=== PATIENT | female | born 1985 | race Caucasian/White ===

== ENCOUNTER 2016-12-19 16:09 | Emergency (ER) | payer OTHER ==
[~2016-12-19] VITALS: Ht 167.6 cm; Wt 93.6 kg
[~2016-12-19 16:09] MED LIST: ASCO500T8 PO; Acetaminophen/Codeine PO; DOCU-41 PO; Docusate Sodium PO; FERR-74 PO; IBUP800T28 PO; Ibuprofen PO; OXYC1TAB24 PO; [UNRECOGNIZED DRUG - OTHER]
[2016-12-19 16:20] VITALS: BP 123/89; PULSE 94; RESP 15; O2SAT 100
--- NOTE | 2016-12-19 16:37 | ED.REPORT ---
HPI-Chest Pain Under 40 Date of Service December 19, 2016 ED Provider: Elio Hamlin MD Pt is a healthy 7 wk by LMP 31 y/o female presenting to the ED c/o intermittent substernal chest pressure onset 4 days ago. Her pain is exacerbated by exertion, movement, bending, or twisting. She c/o associated pelvic cramping, sudden onset mild/intermittent SOB for 4 days. She had a positive test on Wednesday and her last menstrual period was October 28. [facility] for further evaluation prior to obtaining an ultrasound. She denies vaginal bleeding. She reports when the nurse took her BP on her right arm in triage it caused her severe chest pain. Pt denies any extremity swelling or tenderness, history of PE or DVT, long periods of immobilization, recent surgeries. This may or may not be a desired because she just filed for divorce from her the same day she found out she was . He reports a very high level of stress and anxiety related to discovering her at the same time she is getting . This is her 3rd and she has no history of ectopic or STIs. Nursing Notes Stated Complaint: CHEST PAIN, CRAMPING, Chief Complaint: Chest Pain Nursing Notes Reviewed: Yes Allergies: Coded Allergies: moxifloxacin (Verified Allergy, Unknown, 01/31/14) sulfamethoxazole (Verified Allergy, Unknown, RASH, 12/15/13) trimethoprim (Verified Allergy, Unknown, RASH, 12/15/13) Scheduled Ascorbic Acid (Vitamin C) 500 Mg Tablet 500 MG PO BID Ferrous Sulfate (Feosol) 325 Mg Tablet 325 MG PO TID Scheduled PRN ([Docusate Sodium]) 100 MG CAPSULE 100 MG PO BID PRN PRN For Constipation ([Ibuprofen]) 800 MG TABLET 800 MG PO Q6 PRN PRN For Pain ([Acetaminophen/Codeine]) 1 TAB TABLET 1-2 TAB PO Q3 PRN PRN For Pain Docusate Sodium (Colace) 100 Mg Capsule 100 MG PO BID PRN PRN For Constipation Ibuprofen (Ibuprofen) 800 Mg Tablet 800 MG PO TID PRN PRN For Pain oxyCODONE-Acetaminophen 5-325 mg (oxyCODONE-Acetaminophen 5-325 mg) 1 Each Tablet 1 TAB PO Q6H PRN PRN For Pain Miscellaneous Medications ([Clomide]) General Time Seen by MD: 16:33 Chief Complaint Chest pain Hx Obtained From: Patient Arrived By: Walk-in Sudden in Onset?: Yes Onset Occurred: 4 days ago Symptom Duration: Intermittent Location: : Substernal Quality: Painful, Pressure Severity: Current: No pain currently Severity: Maximum: Moderate Past Medical History Past Medical History Migraines GERD Past Surgical History Yes, unspecified Smoking History Never Smoker Ambulatory Status Independent Review of Systems Constitutional: Denies: Chills, Fever Respiratory: Reports: Shortness of breath, Denies: Non-productive cough Cardiovascular: Reports: Chest pain Musculoskeletal: Denies: Extremity pain, Extremity swelling Complete sys rev & neg: except as marked. Physical Exam Initial Vital Signs Vital Signs (First) Date Time Temp Pulse Resp B/P Pulse Ox O2 Delivery O2 Flow Rate FiO2 12/19/16 16:20 37.4 94 15 123/89 100 12/19/16 17:38 Room Air Initial VS: Reviewed, Vital signs normal Head / Eyes: Atraumatic, Normocephalic, PERRL ENT: Mucous membranes moist, Conjunctiva normal, No scleral icterus Neck: Supple, Full range of motion Abdomen / GI: Soft, Non-tender, No guarding, No rebound, No distention Extremities: Vascular intact, Neuro intact, No swelling, No tenderness Skin: Warm, Dry, No cyanosis Neurologic: Alert, Oriented, Nonfocal Psychiatric: Mood/affect normal, Behavior normal, Normal thought content General/Constitutional: Awake, Alert, No acute distress, Cooperative, Not toxic appearing Respiratory / Chest: Atraumatic, Breath sounds NL, Breath sounds = bilat, No respiratory distress, No rales, No rhonchi, No wheezing, No retractions, No stridor Cardiovascular: Heart rate NL, Regular rhythm, Heart sounds NL, No gallop, No murmurs, No rubs, Cap refill not delayed, Peripheral circulation NL Female Genitourinary: [employer] It present (Shonda [facility]), Atraumatic, External genitalia NL, No bleeding, No discharge, No cervical motion tend, Os closed, No foreign body, No adnexal mass, No adnexal tenderness, No uterine enlargement, No uterine mass, No lesions or rash Interpretation & Diagnostics Lab Results Interpretation Result Diagram: 12/19/16 1645 12/19/16 1645 Test 12/19/16 16:45 12/19/16 16:55 White Blood Count 10.7th/mm3 (3.8-10.1) Red Blood Count 4.31mil/mm3 (3.90-5.20) Hemoglobin 9.8g/dL (12.0-15.6) Hematocrit 32.2% (35.0-46.0) Mean Corpuscular Volume 74.7fL (81-100) Mean Corpuscular Hemoglobin 22.7pg (27.0-35.0) Mean Corpuscular Hemoglobin Concent 30.4% (32.0-37.0) Red Cell Distribution Width 17.9% (12.3-15.4) Platelet Count 288bil/L (150-400) Neutrophils (%) (Auto) 74.3% (40-74) Lymphocytes (%) (Auto) 19.0% (14-46) Monocytes (%) (Auto) 4.9% (4-12) Eosinophils (%) (Auto) 1.2% (0-5) Basophils (%) (Auto) 0.3% (0-3) Hold Purple Top Tube Received (Received) D-Dimer 1.68mg/L FEU (<0.50) Hold Blue Top Tube Received (Received) Sodium Level 136mEq/L (134-144) Potassium Level 3.8mEq/L (3.5-5.2) Chloride Level 99mEq/L (97-108) Carbon Dioxide Level 23mmol/L (18-29) Blood Urea Nitrogen 16mg/dL (6-20) Creatinine 0.80mg/dL (0.57-1.00) Estimat Glomerular Filtration Rate 120mL/min (>59) Glucose Level 110mg/dL (60-99) Calcium Level 9.5mg/dL (8.5-10.1) Magnesium Level 1.8mg/dL (1.6-2.6) Total Bilirubin 0.2mg/dL (0.0-1.2) Aspartate Amino Transf (AST/SGOT) 14U/L (0-50) Alanine Aminotransferase (ALT/SGPT) 14U/L (0-32) Alkaline Phosphatase 54U/L (25-150) Troponin T < 0.010ug/L (0.0-0.011) Total Protein 7.2g/dL (6.4-8.4) Albumin 4.1g/dL (3.4-5.0) HCG Beta Subunit 2765mIU/mL Hold Red Top Tube Received (Received) Hold Misenheimer Top Tube Received (Received) Hold Jonas Top Tube Received (Received) Urine Color Yellow (YELLOW) Urine Appearance Turbid (CLEAR,HAZY) Urine pH 5.5 (5.0-8.0) Urine Specific [place] 1.025 (1.003-1.035) Urine Protein Negativemg/dL (NEG,TRACE) Urine Glucose (UA) Negativemg/dL (NEGATIVE) Urine Ketones Tracemg/dL (NEGATIVE) Urine Occult Blood Negative (NEGATIVE) Urine Nitrite Negative (NEGATIVE) Urine Bilirubin Negative (NEGATIVE) Urine Urobilinogen Normalmg/dL (NORMAL) Urine Leukocyte Esterase Negative (NEGATIVE) Urine RBC 0-2/hpf (0-2) Urine WBC 0-5/hpf (0-5) Urine Epithelial Cells Occasional/hpf (NONE-MOD) Urine Crystals Amorphous urates (NONE Urine Bacteria None/hpf (NONE-FEW) Urine Hyaline Casts None/lpf (NONE) Urine Granular Casts None seen (NONE SEEN) Urine Waxy Casts None seen (NONE SEEN) Urine Red Blood Cell Casts None seen (NONE SEEN) Urine White Blood Cell Casts None seen (NONE SEEN) Urine Mucus None seen (None Seen) Urine Trichomonas None seen (NONE SEEN) Urine Yeast None (NONE SEEN) Urinalysis Comment None Urine Culture Reflexed Not indicated Hold Urine Received (Received) ECG Interpretation Time: 17:09 Interpreted by: ED physician Normal ECG Interpretation: Normal ECG w/ rate of... (80), Normal rate, Normal sinus rhythm, No acute ischemic changes, Normal QRS, Normal axis, Normal intervals, Adequate tracing US Focused Lower Ext Venous Negative for DVT in the left and right leg Exam Performed by: Allied health pract Exam Interpreted by: Allied health pract Indication: Dyspnea US Focused OB IMPRESSION: 1. Single intrauterine gestational sac without pole as above. Recommend correlation with beta-hCG levels and continued interval ultrasound followup for further evaluation. Dictated by: Neeru Mccray M.D. on 12/19/2016 at 20:22 Approved by: Neeru Mccray M.D. on 12/19/2016 at 20:24 Exam Performed by: Allied health pract Exam Interpreted by: Radiologist Re-Eval/Medical Decision Med Decision/Clinical Course Pt is a healthy 7 wk by LMP 31 y/o female presenting to the ED c/o intermittent substernal chest pressure onset 4 days ago. Her pain is exacerbated by exertion, movement, bending, or twisting. She c/o associated pelvic cramping, sudden onset mild/intermittent SOB for 4 days. She had a positive test on Wednesday and her last menstrual period was October 28. [facility] for further evaluation prior to obtaining an ultrasound. She denies vaginal bleeding. She reports when the nurse took her BP on her right arm in triage it caused her severe chest pain. Pt denies any extremity swelling or tenderness, history of PE or DVT, long periods of immobilization, recent surgeries. This may or may not be a desired because she just filed for divorce from her the same day she found out she was . He reports a very high level of stress and anxiety related to discovering her at the same time she is getting . This is her 3rd and she has no history of ectopic or STIs. Here in the emergency department the patient is afebrile, hemodynamically stable and in no apparent distress. She is very mildly tachycardic though with good oxygen saturation on room air and without tachypnea. Termination reveals no findings suggestive of DVT. Labs notable as below: CBC: HCT of 32.2, borderline leukocytosis of 10.7 CMP: Unremarkable Troponin: negative D-dimer: 1.68 Bilateral lower extremity ultrasound: No evidence of deep venous thrombosis. Pelvic ultrasound: Single intrauterine gestational sac without pole as above. Recommend correlation with beta-hCG levels and continued interval ultrasound followup for further evaluation. Pelvic examination reveals a cervix with no blood, no abnormal discharge and no tenderness. Too early at this time to rule in intrauterine though overall presentation is not particularly convincing for ectopic. Recommend [facility] with [facility] and repeat hCG level. Return immediately for any recurrent abdominal cramping or bleeding. Unfortunately, d-dimer level was obtained by triage nurse. This is extremely difficult to interpret in the setting of the patient's . Clinical suspicion for pulmonary embolism is very low. She is without ongoing tachycardia and has not been tachypneic or hypoxic on room air. Bilateral lower extremity duplex reveals no DVT. Discussed with [facility] and given overall risk factors, low clinical suspicion we both feel that CT angiography or admission for VQ study is not indicated. We feel that the risks of radiation outweigh any benefits. Patient in agreement with this plan. She will follow up closely with [facility]. Prior to discharge follow-up and return precautions were reviewed in detail with the patient who verbalized understanding and agreement with the plan. The patient was discharged in stable condition. Re-Evaluation/Progress : Time of Eval: 20:28 Re-Evaluation/Progress Note: Pt rechecked. Discussed imaging and lab results. Informed pt of plan for treatment. Pt understands and agrees with plan for treatment. F/U instructions and RTER warnings given. All questions addressed. Consultation : Referral / Consult Name: Ashlee Santacruz MD Call Returned at: 19:57 Spine Supervisor: Agrees with eval, Agrees with plan Note: Discussed case and possibility of PE with [facility]. Agrees with plan for discharge. Given negative duplex would not recommend getting a VQ scan. Counseled Regarding: Diagnosis, Lab results, Need for follow-up, When/why to return to ED Discharge & Departure Primary Impression: Chest pain Chest pain type: unspecified Qualified Code: R07.9 - Chest pain, unspecified Additional Impressions: Abdominal cramping Shortness of breath Weeks of gestation: less than 8 weeks Qualified Code: Z3A.01 - Less than 8 weeks gestation of Disposition: Home Discharge Condition All VS Reviewed: Yes Condition: Stable Patient Instructions: Chest Pain (ED) Additional Instructions: Thank you for seeking care at the emergency room. You were seen today for , abdominal cramping, chest discomfort and shortness of breath. Our primary goal today in the ED was to evaluate you for any life-threatening conditions. Your evaluation was reassuring. We do not see any signs of blood clots in your legs. [facility] have [facility] discussions about her and to recheck your hormone levels and possibly do another ultrasound to make sure the you do not have any signs of an ectopic . You should return to the ED immediately if you develop abdominal pain, bleeding , difficulty breathing, fevers, vomiting, cough, shortness of breath, chest pain , lightheadedness, weakness or any other concerning signs or symptoms. Thank you for letting us partake in your care today. Referrals: Elisabeth Haddad (PCP) [place] Att[facility] Portions of this note were transcribed by Hernando Verdin. I, Dr. Hamlin personally performed the history, physical exam and medical decision-making; I reviewed and confirmed the accuracy of the information in the transcribed note. Signed by [place] Orr, 12/19/16 - [id number] copies to: Elisabeth Haddad Beck O MD December 19, 2016 16:37 HERNANDO VERDIN December 19, 2016 16:54
[2016-12-19 17:12] LABS: MONOCYTES % (AUTO) 4.9 % (4-12)
[2016-12-19 17:19] LABS: BASOPHILS % (AUTO) 0.3 % (0-3); EOSINOPHILS % (AUTO) 1.2 % (0-5); Mean Corpuscular Hemoglobin 22.7 pg (27.0-35.0); Mean Corpuscular Volume 74.7 fL (81-100); NEUTROPHILS % (AUTO) 74.3 % (40-74); Platelet Count 288 bil/L (150-400)
[2016-12-19 17:38] VITALS: BP 128/59; PULSE 82; RESP 15; O2SAT 97
[2016-12-19 17:38] LABS: TROPONIN T < 0.010 ug/L (0.0-0.011)
[2016-12-19 17:47] LABS: Magnesium 1.8 mg/dL (1.6-2.6)
[2016-12-19] MEDS ORDERED: 0.9% Sodium Chloride 1,000 ML IV ONE (18:34)
--- NOTE | 2016-12-19 19:56 | DRSVH ---
PROCEDURE: US VENOUS LEG DUPLEX BILATERAL INDICATIONS: assess for dvt TECHNIQUE: Real-time imaging, as well as color and pulse Doppler interrogation, were performed of the deep veins of both legs from the inguinal ligament to the popliteal fossa. COMPARISON: None. FINDINGS: The deep veins are normally compressible, and free of intraluminal thrombus. Color and pu lse Doppler demonstrate normal phasic intravascular flow. There is normal augmentation response to d istal compression maneuver. IMPRESSION: No evidence of deep venous thrombosis. Dictated by: Neeru Mccray M.D. on 12/19/2016 at 19:54 Approved by: Neeru Mccray M.D. on 12/19/2016 at 19:54
[2016-12-19] MEDS ORDERED: LidocaineVisc 2%:Antacid 1:1 10 mL Syringe PO ONE (20:25)
--- NOTE | 2016-12-19 20:26 | DRSVH ---
PROCEDURE: US OB<14 WKS+OB TRANSVAG INDICATIONS: vag bleed, preg OUTSIDE/PRIOR DATING DATA: Last menstrual period (LMP): 10/28/16. LMP-based estimated date of delivery (LUL): 08/04/17. First dating scan (date and location): 12/19/16. Estimated date of delivery (LUL) from first dating scan: 08/18/17. TECHNIQUE: Real-time scanning was performed of the fetus and maternal pelvic organs, with image documentation. Endovaginal scanning was also performed to better visualize the fetus and maternal ovaries. COMPARISON: None. FINDINGS: Embryo: Single intrauterine gestational sac is identified measuring 7 mm corresponding to 5 weeks 3 d ays. No pole is identified. Small focus of eliz-gestational bleed is identified measuring 8 mm. Measurement variability in dating: +/- 4 weeks by LMP, +/- 7 days by mean sac diameter (use before 6 weeks gestation if crown-rump length not able to be measured), +/- 5 days by crown-rump length (6-12 weeks gestation). Maternal organs: Ovaries are unremarkable with appearance of a possible corpus luteal cyst on the ri ght. Minimal free fluid is noted adjacent to the right ovary. Limited images through the kidneys dem onstrate no hydronephrosis. IMPRESSION: 1. Single intrauterine gestational sac without pole as above. Recommend correlation with beta-h CG levels and continued interval ultrasound followup for further evaluation. Dictated by: Neeru Mccray M.D. on 12/19/2016 at 20:22 Approved by: Neeru Mccray M.D. on 12/19/2016 at 20:24
[2016-12-19 20:42] LABS: APPEARANCE,URINE TURBID (CLEAR,HAZY); COLOR,URINE YELLOW (YELLOW); PH,URINE 5.5 (5.0-8.0)
[2016-12-19 20:43] LABS: OCCULT BLOOD,URINE NEGATIVE (NEGATIVE); UROBILINOGEN,URINE NORMAL (NORMAL)
[2016-12-19 20:47] VITALS: BP 124/66; PULSE 81; RESP 14; O2SAT 99
== END 2016-12-19 20:47 | disposition home or self-care (01) ==
LOC: SED 16:09
DX: O26.891 Other specified pregnancy related conditions, first trimester (principal); R07.2 Precordial pain; R10.9 Unspecified abdominal pain; R06.02 Shortness of breath; R10.2 Pelvic and perineal pain; K21.9 Gastro-esophageal reflux disease without esophagitis; Z3A.01 Less than 8 weeks gestation of pregnancy; Z88.1 Allergy status to other antibiotic agents; Z88.8 Allergy status to other drugs, medicaments and biological substances
CPT/HCPCS: 36415; 76801; 76817; 80053; 81000; 83735; 84484; 84702; 85025; 85378; 93005; 93970; 96360; 99285; J7030